=== PATIENT | male | born 1980 | race Caucasian/White ===

== ENCOUNTER 2021-11-10 13:16 | Inpatient (IN) ==
[2021-11-10] MEDS ORDERED: AMPICILLIN/SULBACTAM SOD 3,000 MG in 0.9 % SODIUM CHLORIDE 100 ML IV STA (13:40)
--- NOTE | 2021-11-10 13:58 | Emergency Department Note ---
Impression & Plan Diverticulitis of sigmoid colon, Abdominal pain, RLQ ED Provider Note Provider: Rachid Gifford MD DATE OF SERVICE: 11/10/2021 CHIEF COMPLAINT: Abdominal pain, diverticulitis HISTORY OF PRESENT ILLNESS: Patient is a 41-year-old gentleman history of GERD presenting here today reporting developed yesterday afternoon around 3 PM some pain in the right lower quadrant of the abdomen. Sharp pain wax and wane a bit over the course the evening was associated with some dry heaves. Took some ibup rofen which helped last night. Has not had anything for pain today with 3 out of 10 pain currently in the right lower quadrant. Discussed and c-Myc is doctor's clinic earlier today and an outpatient CT scan. Advised to come to the ER given CT scan findings showing diverticulitis with microperforation but no abscess. Patient denies significant fevers or chills. He denies significant nausea at this time. No history of diverticulitis or colonoscopy reported by the patient. REVIEW OF SYSTEMS: A total of 10 review of systems was obtained and negative except as stated above in the HPI. PAST MEDICAL HISTORY: As noted above MEDICATIONS: PPI SOCIAL HISTORY: Rare alcohol, non-smoker PHYSICAL EXAM: GENERAL: alert and oriented in no acute distress on stretcher Head: normocephalic and atraumatic EYES: No injection, discharge or icterus. NECK: Trachea midline. LUNGS: Airway patent. No retractions not tachypneic HEART: Regular rate and rhythm. No chest wall tenderness ABDOMEN: Soft and non-tender with some right lower abdominal tenderness on exam. Not peritoneal. SKIN: Acyanotic, warm, dry, without rashes EXTREMITIES: Without swelling, tenderness or deformity NEUROLOGICAL: No focal deficits. No aphasia. No facial droop or slurred speech. Ambulatory. Patient's laboratory studies and imaging reviewed. Differential includes Appendicitis, testicular torsion, infections, diverti culitis, UTI, obstruction, mesenteric ischemia, aortic pathology, inflammatory bowel disease, renal colic, PUD, pancreatitis, biliary pathology, hernia, volvulus, constipation, as well as other pathologies. IMPRESSION/MEDICAL DECISION MAKING: Patient presents with abdominal pain yesterday presents today. Outpatient CT scan with diverticulitis with microperforation. No drainable abscess noted per the scan reports available from the [employer] system. Patient is well-appearing and afebrile. Does not appear septic. Without a history of diverticulitis but no history of colonoscopy either. Given a dose of Unasyn. Basic blood work was obtained. Patient with mild leukocytosis consistent with diverticulitis. Given the microperforation finding would proceed with some IV antibiotics and observe overnight. Discussed with the patient. Hospitalist team was consulted. DIAGNOSIS: Diverticulitis with microperforation, right lower quadrant abdominal pain DISPOSITION: Hospitalist will evaluate Patient was agreeable with this plan. Past Med/Surg History Medical History GERD (gastroesophageal reflux disease) HLD (hyperlipidemia) Surgical History S/P tonsillectomy Family History Other Heart disease Social History (Updated 11/10/21 @ 15:26 by Miriam Soto PA-C) Smoking Status: Never smoker Hx Alcohol Use: Yes Alcohol type: beer Alcohol Intake Frequency: 2-4 x/Month Feels Safe at Home: Yes Allergies Allergies Allergy/AdvReac Type Severity Reaction Status Date / Time No Known Allergies Unverified 11/10/21 14:51 Home Meds Home Medications Medication Instructions Recorded Confirmed esomeprazole magnesium 20 mg 20 mg PO QAM 11/10/21 11/10/21 capsule,delayed release (Nexium) Results & Data (ED) Vital Signs Vital Signs - 24 hr 11/10/21 13:18 11/10/21 15:16 Temperature 36.9 C Temperature Source Temporal Artery Scan Pulse Rate 87 Respiratory Rate 20 Blood Pressure 120/86 Blood Pressure Mean 97 Pulse Oximetry 97 Oxygen Delivery Method Room Air Room Air Sepsis Recent Fever Within 48 Hours No Sepsis New/Unexplained Change in Mental Status N/A Sepsis Action Taken by Nursing No Action Required Laboratory Data Result diagrams: 11/10/21 14:25 11/10/21 14:25 Lab Results 11/10/21 11/10/21 11/10/21 Range/Units 14:25 14:25 Unknown WBC 13.23 H (4.8-10.8) K/uL RBC 4.93 (4.7-6.1) M/uL Hgb 15.3 (14.0-18.0) g/dL Hct 45.7 (42-52) % MCV 92.7 (80-100) fL MCH 31.0 (25-34) pg MCHC 33.5 (32-36) g/dL RDW Std Deviation 43.9 (36.4-46.3) fL RDW Coeff of Micah 13.0 (11.5-14.5) % Plt Count 245 (130-400) K/uL MPV 10.7 H (7.4-10.4) fL Immature Gran % (Auto) 0.4 % Neut % (Auto) 66.3 % Lymph % (Auto) 18.8 % [place] % (Auto) 12.5 % Eos % (Auto) 1.8 % Baso % (Auto) 0.2 % Neut # (Auto) 8.77 H (1.4-6.5) K/uL Lymph # (Auto) 2.49 (1.2-3.4) K/uL [place] # (Auto) 1.66 H (0.11-0.59) K/uL Eos # (Auto) 0.24 (0-0.5) K/uL Baso # (Auto) 0.02 (0-0.2) K/uL Immature Gran # (Auto) 0.05 H (0.00-0.02) K/uL Sodium 137 (136-145) mmol/L Potassium 4.3 (3.5-5.1) mmol/L Chloride 102 (98-107) mmol/L Carbon Dioxide 28 (21-32) mmol/L Anion Gap 7 (3-11) BUN 13 (6-23) mg/dl Creatinine 1.08 (0.6-1.4) mg/dl Est Cr Clr Drug Dosing 116.2 ml/min Est GFR ( Amer) 97.6 ml/min Est GFR (Non-Af Amer) 84.2 ml/min BUN/Creatinine Ratio 12.0 (10-20) Glucose 90 (70-99(Fasting)) mg/dl Calcium 9.7 (8.5-10.1) mg/dl Total Bilirubin 1.0 (0.2-1.0) mg/dl AST 25 (13-39) U/L ALT 41 (7-52) U/L Alkaline Phosphatase 48 (34-104) U/L Total Protein 7.9 (6.0-8.3) gm/dl Albumin 4.6 (3.4-5.0) gm/dl Globulin 3.3 (2.5-4.0) gm/dl Albumin/Globulin Ratio 1.4 (0.9-2) Lipase 10 L (11-82) U/L SARS-CoV-2, RNA, NAAT NEGATIVE (NEGATIVE) Administered Medications Lactated Ringer's (Lr) 1,000 mls @ 125 mls/hr IV .Q8H ZEE Stop: 12/10/21 14:14 Last Admin: 11/10/21 14:43 Dose: 125 mls/hr Documented by: [id number] Discontinued Medications Ampicillin Sodium/Sulbactam Sodium 3,000 mg/ Sodium Chloride 108 mls @ 200 mls/hr IV NOW STA; Protocol Stop: 11/10/21 14:12 Last Infusion: 11/10/21 15:42 Dose: 0 mls/hr Documented by: [id number] Admin: 11/10/21 14:43 Dose: 200 mls/hr Documented by: [id number] Discharge Plan Visit Data Chief Complaint: Abnormal Labs/Diagnostic Testing Stated Complaint: CT SHOWED DIVERTICULITIS ED Provider: Rachid Gifford Discharge Problem: Diverticulitis of sigmoid colon, Abdominal pain, RLQ Patient Disposition: Being Evaluated by Hospitalist Forms Stand Alone Forms: Altar Prescriptions Prescriptions: No Action esomeprazole magnesium [Nexium] 20 mg Capsule,Delayed Release(Dr/Ec) 20 mg PO QAM RF: 0 Referrals Referrals: PCP,NO [Physician] -
[2021-11-10] MEDS ORDERED: LACTATED RINGER'S 1,000 ML IV SCH (14:15)
--- NOTE | 2021-11-10 14:31 | History & Physical Report ---
Date of Service November 10, 2021 Assessment & Plan (1) Diverticulitis of sigmoid colon: Plan: This is a 41yo M with PMH of dyslipidemia and GERD who presents with abdominal pain and an outpatient CT abd/pelvis showing sigmoid diverticulitis with microperforation but no abscess. VSS, WBC 13.23, hgb 15.[address] abd/pelvis with contrast showing sigmoid diverticulitis with microperforation but no abscess Continue abx therapy with Zosyn Clear liquids Consider stool cx/ c diff if patient develops diarrhea Routine general surgery consult (2) GERD (gastroesophageal reflux disease): Plan: Continue PPI DVT Ppx: SCDs for now Code status: FULL PCP: [place] Dispo: Admitted to med/surg Patient seen in collaboration with Dr. Woodson. Please see addendum. History of Present Illness Chief Complaint: abd pain Primary Care Provider: NO PCP This is a 41yo M with PMH of dyslipidemia and GERD who presents with abdominal pain. Developed lower sided abdominal pain yesterday that got worse as time went on. Describes yesterday's pain as 8/10 and sharp to the point that it made him feel nauseated. Had some relief with ibuprofen at home. Denies any vomiting. No diarrhea or hematochezia. No fever or chills. Decreased appetite since yesterday. Abdominal pain now 2/10 and not requiring pain meds. No CP, SOB, dysuria, diarrhea or constipation. No previous abdominal surgeries. Went to PCP this morning with CT abd/pelvis with contrast showing sigmoid diverticulitis with microperforation but no abscess. Sent to ED for further evaluation. Allergies Allergy/AdvReac Type Severity Reaction Status Date / Time No Known Allergies Unverified 11/10/21 14:51 Home Medications Medication Instructions Recorded Confirmed Type esomeprazole magnesium 20 mg 20 mg PO QAM 11/10/21 11/10/21 History capsule,delayed release (Nexium) Past Med/Surg History Medical History GERD (gastroesophageal reflux disease) HLD (hyperlipidemia) Surgical History S/P tonsillectomy Family History Other Heart disease Social History (Updated 11/10/21 @ 15:26 by Miriam Soto PA-C) Smoking Status: Never smoker Hx Alcohol Use: Yes Alcohol type: beer Alcohol Intake Frequency: 2-4 x/Month Feels Safe at Home: Yes Review of Systems Review of Systems: At least ten systems reviewed and negative except as noted in the HPI. Physical Exam Physical Exam: Gen: WD/WN, NAD, sitting in bed, A&Ox3 HEENT: Normocephalic, atraumatic, conjunctivae moist, sclerae anicteric, mucous membranes moist Lung: Clear to Auscultation bilaterally, no wheezes/rales/rhonchi Heart: Regular rate, regular rhythm, no murmurs, rubs, or gallops Abdomen: RLQ TTP, ND +BS x 4 Extremities: no edema Skin: Warm, no rash Results & Data Results & Data ([facility]) Vital Signs (Past 12 Hours) Vital Signs Temp Pulse Resp BP Pulse Ox 11/10/21 13:18 36.9 C 87 20 120/86 97 Laboratory Results Short CBC 11/10/21 Range/Units 14:25 WBC 13.23 H (4.8-10.8) K/uL Hgb 15.3 (14.0-18.0) g/dL Hct 45.7 (42-52) % Plt Count 245 (130-400) K/uL BMP 11/10/21 14:25 Sodium 137 Potassium 4.3 Chloride 102 Carbon Dioxide 28 BUN 13 Creatinine 1.08 Glucose 90 Calcium 9.7 Liver Function 11/10/21 Range/Units 14:25 Total Bilirubin 1.0 (0.2-1.0) mg/dl AST 25 (13-39) U/L ALT 41 (7-52) U/L Alkaline Phosphatase 48 (34-104) U/L Albumin 4.6 (3.4-5.0) gm/dl Diagnostic Findings Outpatient imaging with CT abd/pelvis IV and oral contrast: Impression: Sigmoid diverticulitis with microperforation but no abscess Supervising Physician Co-Signing Physician Notes Pt is a 41 y/o M with hx of GERD and HLD admitted for diverticulitis. PE: NAD Cardiac: Normal S1/S2, no murmur Lungs: CTA, no wheezing or crackles Abd: ND, Soft, increased BS, TTP of the lower abd (R>L), no rebound tenderness Psych: AAOx3, normal affect A/P: Acute Diverticulitis: -CT abd: Normal in caliber. There is sigmoid diverticulosis with evidence of diverticulitis involving the mid sigmoid. There is associated microperforation, but no abscess is seen. The appendix is within normal limits -will get surgery consult - clear liquid diet and advance as tolerates -will continue the pt on zosyn -prn pain meds Agree with A/P by Miriam Soto PA-C
[2021-11-10 14:44] LABS: Basophils # (auto) 0.02 K/uL (0-0.2); Basophils % (auto) 0.2 %; Eosinophils # (auto) 0.24 K/uL (0-0.5); Eosinophils % (auto) 1.8 %; Hematocrit (blood only) 45.7 % (42-52); Hemoglobin 15.3 g/dL (14.0-18.0); Immature Granulocytes # (auto) 0.05 K/uL (0.00-0.02); Immature Granulocytes % (auto) 0.4 %; Lymphocytes # (auto) 2.49 K/uL (1.2-3.4); Lymphocytes % (auto) 18.8 %; Mean Corpuscular Hgb Conc 33.5 g/dL (32-36); Mean Corpuscular Volume 92.7 fL (80-100); Mean Platelet Volume 10.7 fL (7.4-10.4); Monocytes # (auto) 1.66 K/uL (0.11-0.59); Monocytes % (auto) 12.5 %; Neutrophils # (auto) 8.77 K/uL (1.4-6.5); Neutrophils % (auto) 66.3 %; Platelet Count 245 K/uL (130-400); RDW Standard Deviation 43.9 fL (36.4-46.3); Red Blood Count 4.93 M/uL (4.7-6.1); White Blood Count 13.23 K/uL (4.8-10.8)
[2021-11-10 15:12] LABS: Albumin Globulin Ratio 1.4 (0.9-2); Albumin Level 4.6 gm/dl (3.4-5.0); Calcium 9.7 mg/dl (8.5-10.1); Creatinine Clr Calc Pharmacy 116.2 ml/min; Est GFR (African American) 97.6 ml/min; Est GFR (Non-African American) 84.2 ml/min; Globulin 3.3 gm/dl (2.5-4.0); Potassium 4.3 mmol/L (3.5-5.1); Total Protein 7.9 gm/dl (6.0-8.3)
[2021-11-10] MEDS ORDERED: CONSULT PHARMACY STA (15:15)
--- NOTE | 2021-11-10 16:57 | Surgery Consultation ---
Date of Consultation November 10, 2021 Assessment & Plan (1) Diverticulitis of sigmoid colon: (2) Abdominal pain, RLQ: 41-year-old male who presented to the emergency room with complaint of right lower quadrant abdominal pain that started at 3 PM yesterday associated chills with nausea and dry heaves no vomiting. Outpatient CT scan of abdomen and pelvis with oral and IV contrast showing acute sigmoid diverticulitis with microperforation however no abscess formation. His pain is currently a 3 out of 10. Mild leukocytosis of 13,000. Afebrile. Plan: No acute surgical intervention required at this time. Would continue conservative measures with IV fluids, IV antibiotics, pain management as needed and okay to have clear liquids. Can possibly advance diet tomorrow. Discussed outpatient need for colonoscopy in 6 to 8 weeks once acute inflammation has resolved. We will continue to follow. Dr. Dumont has seen and examined patient and agrees with above. History of Present Illness Reason for Consultation: Acute sigmoid diverticulitis with microperforation Requesting Physician: Miriam Soto PA-C Attending Physician: Denise Woodson History of Present Illness Andre is a pleasant 41-year-old male with past medical history of reflux, h yperlipidemia who presented to the emergency room from his PCP office due to abdominal pain that started yesterday around [address] scan showing sigmoid diverticulitis with microperforation. Andre states that the pain started around 3 PM and then increased in severity throughout the evening. Was about 9 out of 10 at the highest. Pain located in the right lower abdomen with associated chills, nausea, dry heaves but no vomiting. Never had any similar episodes of pain like this in the past. Never had any episodes of diverticulitis in the past. Has never had a colonoscopy. States he took 1 ibuprofen which helped the pain a little bit. States his pain is about a 3 out of 10 today and is feeling better. Bowel movements have been regular. No blood in the stools. Otherwise no complaints. His outpatient CT scan was able to be reviewed within [facility] records. Showing acute sigmoid diverticulitis with microperforation however no evidence of an abscess or fluid collection. His sigmoid is actually located within the right lower quadrant which makes sense of his right lower quadrant abdominal pain. Allergies Allergy/AdvReac Type Severity Reaction Status Date / Time No Known Allergies Unverified 11/10/21 14:51 Home Medications Medication Instructions Recorded Confirmed Type esomeprazole magnesium 20 mg 20 mg PO QAM 11/10/21 11/10/21 History capsule,delayed release (Nexium) Patient History Medical History GERD (gastroesophageal reflux disease) HLD (hyperlipidemia) Surgical History S/P tonsillectomy Family History Other Heart disease Social History (Updated 11/10/21 @ 15:26 by Miriam Soto PA-C) Smoking Status: Never smoker Hx Alcohol Use: Yes Alcohol type: beer Alcohol Intake Frequency: 2-4 x/Month Feels Safe at Home: Yes Physical Exam Constitutional: well developed, well nourished and + obese; no acute distress and not ill appearing Neck: normal visual inspection and trachea midline Respiratory: normal respiratory effort, lungs clear to auscultation Cardiovascular: RRR, no murmur, no edema Gastrointestinal (Abdomen): Inspection/Auscultation: abdomen normal to inspection Percussion/Palpation: + abdomen tender (Right lower quadrant), + guarding (Voluntary, right lower quadrant), abdomen soft and + hernia (Umbilical hernia, reducible); abdomen not rigid Skin: no rashes, warm and dry Psychiatric: A+Ox3, euthymic affect Results & Data ([facility]) Vital Signs (Past 12 Hours) Vital Signs Temp Pulse Resp BP Pulse Ox 11/10/21 13:18 36.9 C 87 20 120/86 97 Laboratory Results 11/10/21 11/10/21 11/10/21 Range/Units Unknown 14:25 14:25 WBC 13.23 H (4.8-10.8) K/uL RBC 4.93 (4.7-6.1) M/uL Hgb 15.3 (14.0-18.0) g/dL Hct 45.7 (42-52) % MCV 92.7 (80-100) fL MCH 31.0 (25-34) pg MCHC 33.5 (32-36) g/dL RDW Std Deviation 43.9 (36.4-46.3) fL RDW Coeff of Micah 13.0 (11.5-14.5) % Plt Count 245 (130-400) K/uL MPV 10.7 H (7.4-10.4) fL Immature Gran % (Auto) 0.4 % Neut % (Auto) 66.3 % Lymph % (Auto) 18.8 % [place] % (Auto) 12.5 % Eos % (Auto) 1.8 % Baso % (Auto) 0.2 % Neut # (Auto) 8.77 H (1.4-6.5) K/uL Lymph # (Auto) 2.49 (1.2-3.4) K/uL [place] # (Auto) 1.66 H (0.11-0.59) K/uL Eos # (Auto) 0.24 (0-0.5) K/uL Baso # (Auto) 0.02 (0-0.2) K/uL Immature Gran # (Auto) 0.05 H (0.00-0.02) K/uL Sodium 137 (136-145) mmol/L Potassium 4.3 (3.5-5.1) mmol/L Chloride 102 (98-107) mmol/L Carbon Dioxide 28 (21-32) mmol/L Anion Gap 7 (3-11) BUN 13 (6-23) mg/dl Creatinine 1.08 (0.6-1.4) mg/dl Est Cr Clr Drug Dosing 116.2 ml/min Est GFR ( Amer) 97.6 ml/min Est GFR (Non-Af Amer) 84.2 ml/min BUN/Creatinine Ratio 12.0 (10-20) Glucose 90 (70-99(Fasting)) mg/dl Calcium 9.7 (8.5-10.1) mg/dl Total Bilirubin 1.0 (0.2-1.0) mg/dl AST 25 (13-39) U/L ALT 41 (7-52) U/L Alkaline Phosphatase 48 (34-104) U/L Total Protein 7.9 (6.0-8.3) gm/dl Albumin 4.6 (3.4-5.0) gm/dl Globulin 3.3 (2.5-4.0) gm/dl Albumin/Globulin Ratio 1.4 (0.9-2) Lipase 10 L (11-82) U/L SARS-CoV-2, RNA, NAAT NEGATIVE (NEGATIVE) Diagnostic Findings Reviewed outpatient CT scan of abdomen pelvis with oral and IV contrast [facility] record showing acute sigmoid diverticulitis with microperforation no evidence of abscess or fluid collection.
[2021-11-10] MEDS ORDERED: PIPERACILL/TAZOBAC CONSULT ACTIVE PRN (17:18)
[2021-11-10] MEDS ORDERED: PIPERACILLIN/TAZOBACTAM 3.375 GM in DEXTROSE 5% 100 ML IV ONE (17:30)
[2021-11-10] MEDS ORDERED: ONDANSETRON INJ 2 MG/ML 2 ML VIAL IV PRN (18:38)
[2021-11-10] MEDS ORDERED: ACETAMINOPHEN 325 MG TAB PO PRN (18:38)
[2021-11-10] MEDS ORDERED: POLYETHYLENE (MIRALAX) 17 GM PACK PO PRN (18:38)
[2021-11-11] MEDS: PIPERACILLIN/TAZOBACTAM 3.375 GM in DEXTROSE 5% 100 ML IV SCH ×3 (01:42→13:43)
[2021-11-11 08:02] LABS: Hematocrit (blood only) 44.1 % (42-52); Hemoglobin 14.4 g/dL (14.0-18.0); Mean Corpuscular Hemoglobin 30.8 pg (25-34); Mean Corpuscular Hgb Conc 32.7 g/dL (32-36); Mean Corpuscular Volume 94.2 fL (80-100); Mean Platelet Volume 10.7 fL (7.4-10.4); Platelet Count 247 K/uL (130-400); RDW Standard Deviation 44.6 fL (36.4-46.3); Red Blood Count 4.68 M/uL (4.7-6.1); White Blood Count 9.05 K/uL (4.8-10.8)
[2021-11-11 10:29] LABS: BUN Creatinine Ratio 8.9 (10-20); Calcium 9.4 mg/dl (8.5-10.1); Creatinine Clr Calc Pharmacy 112.1 ml/min; Est GFR (African American) 93.4 ml/min; Est GFR (Non-African American) 80.6 ml/min
--- NOTE | 2021-11-11 12:00 | Surgery Progress Note ---
Date of Service November 11, 2021 Assessment & Plan (1) Diverticulitis of sigmoid colon: (2) Abdominal pain, RLQ: Plan: 41-year-old male who presented to the emergency room with complaint of right lower quadrant abdominal pain that started at 3 PM 1/24 associated chills with nausea and dry heaves no vomiting. Outpatient CT scan of abdomen and pelvis with oral and IV contrast showing acute sigmoid diverticulitis with microperforation however no abscess formation. afebrile, vss, leukocytosis resolved. Plan: No acute surgical intervention required at this time. Okay to advance diet and discharge later today after another dose of IV antibiotics and transition to oral antibiotics for 10 days will need outpatient colonoscopy in 6-8 weeks low fiber diet for next few weeks Dr. Dumont has seen and examined patient and agrees with above. Admission and Anticipated Discharge Date Admission Date: November 10, 2021 Subjective feeling well today no nausea or vomiting minimal abdominal pain tolerated clear liquids Physical Exam Constitutional: WD/WN, vitals as above no acute distress and not ill appearing Respiratory: normal respiratory effort; no respiratory distress Gastrointestinal (Abdomen): Inspection/Auscultation: abdomen normal to inspection; abdomen not distended Percussion/Palpation: + abdomen tender (minimal in RLQ, improved compared to yesterday), abdomen soft and + hernia (reducible umbilical hernia); no guarding and abdomen not rigid Skin: no rashes, warm and dry Psychiatric: A+Ox3, euthymic affect Results & Data ([facility]) Vital Signs (Past 12 Hours) Vital Signs Temp Pulse Resp BP Pulse Ox 11/11/21 07:13 36.8 C 86 18 107/70 96 Laboratory Results 11/11/21 11/11/21 11/10/21 Range/Units 07:21 07:21 Unknown WBC 9.05 (4.8-10.8) K/uL RBC 4.68 L (4.7-6.1) M/uL Hgb 14.4 (14.0-18.0) g/dL Hct 44.1 (42-52) % MCV 94.2 (80-100) fL MCH 30.8 (25-34) pg MCHC 32.7 (32-36) g/dL RDW Std Deviation 44.6 (36.4-46.3) fL RDW Coeff of Micah 13.0 (11.5-14.5) % Plt Count 247 (130-400) K/uL MPV 10.7 H (7.4-10.4) fL Immature Gran % (Auto) % Neut % (Auto) % Lymph % (Auto) % [place] % (Auto) % Eos % (Auto) % Baso % (Auto) % Neut # (Auto) (1.4-6.5) K/uL Lymph # (Auto) (1.2-3.4) K/uL [place] # (Auto) (0.11-0.59) K/uL Eos # (Auto) (0-0.5) K/uL Baso # (Auto) (0-0.2) K/uL Immature Gran # (Auto) (0.00-0.02) K/uL Sodium 140 (136-145) mmol/L Potassium 4.0 (3.5-5.1) mmol/L Chloride 105 (98-107) mmol/L Carbon Dioxide 27 (21-32) mmol/L Anion Gap 8 (3-11) BUN 10 (6-23) mg/dl Creatinine 1.12 (0.6-1.4) mg/dl Est Cr Clr Drug Dosing 112.1 ml/min Est GFR ( Amer) 93.4 ml/min Est GFR (Non-Af Amer) 80.6 ml/min BUN/Creatinine Ratio 8.9 L (10-20) Glucose 119 H (70-99(Fasting)) mg/dl Calcium 9.4 (8.5-10.1) mg/dl Total Bilirubin (0.2-1.0) mg/dl AST (13-39) U/L ALT (7-52) U/L Alkaline Phosphatase (34-104) U/L Total Protein (6.0-8.3) gm/dl Albumin (3.4-5.0) gm/dl Globulin (2.5-4.0) gm/dl Albumin/Globulin Ratio (0.9-2) Lipase (11-82) U/L SARS-CoV-2, RNA, NAAT NEGATIVE (NEGATIVE) 11/10/21 11/10/21 Range/Units 14:25 14:25 WBC 13.23 H (4.8-10.8) K/uL RBC 4.93 (4.7-6.1) M/uL Hgb 15.3 (14.0-18.0) g/dL Hct 45.7 (42-52) % MCV 92.7 (80-100) fL MCH 31.0 (25-34) pg MCHC 33.5 (32-36) g/dL RDW Std Deviation 43.9 (36.4-46.3) fL RDW Coeff of Micah 13.0 (11.5-14.5) % Plt Count 245 (130-400) K/uL MPV 10.7 H (7.4-10.4) fL Immature Gran % (Auto) 0.4 % Neut % (Auto) 66.3 % Lymph % (Auto) 18.8 % [place] % (Auto) 12.5 % Eos % (Auto) 1.8 % Baso % (Auto) 0.2 % Neut # (Auto) 8.77 H (1.4-6.5) K/uL Lymph # (Auto) 2.49 (1.2-3.4) K/uL [place] # (Auto) 1.66 H (0.11-0.59) K/uL Eos # (Auto) 0.24 (0-0.5) K/uL Baso # (Auto) 0.02 (0-0.2) K/uL Immature Gran # (Auto) 0.05 H (0.00-0.02) K/uL Sodium 137 (136-145) mmol/L Potassium 4.3 (3.5-5.1) mmol/L Chloride 102 (98-107) mmol/L Carbon Dioxide 28 (21-32) mmol/L Anion Gap 7 (3-11) BUN 13 (6-23) mg/dl Creatinine 1.08 (0.6-1.4) mg/dl Est Cr Clr Drug Dosing 116.2 ml/min Est GFR ( Amer) 97.6 ml/min Est GFR (Non-Af Amer) 84.2 ml/min BUN/Creatinine Ratio 12.0 (10-20) Glucose 90 (70-99(Fasting)) mg/dl Calcium 9.7 (8.5-10.1) mg/dl Total Bilirubin 1.0 (0.2-1.0) mg/dl AST 25 (13-39) U/L ALT 41 (7-52) U/L Alkaline Phosphatase 48 (34-104) U/L Total Protein 7.9 (6.0-8.3) gm/dl Albumin 4.6 (3.4-5.0) gm/dl Globulin 3.3 (2.5-4.0) gm/dl Albumin/Globulin Ratio 1.4 (0.9-2) Lipase 10 L (11-82) U/L SARS-CoV-2, RNA, NAAT (NEGATIVE)
--- NOTE | 2021-11-11 12:09 | Discharge Summary ---
Date of Service November 11, 2021 Admission HPI Per Admitting Provider This is a 41yo M with PMH of dyslipidemia and GERD who presents with abdominal pain. Developed lower sided abdominal pain yesterday that got worse as time went on. Describes yesterday's pain as 8/10 and sharp to the point that it made him feel nauseated. Had some relief with ibuprofen at home. Denies any vomiting. No diarrhea or hematochezia. No fever or chills. Decreased appetite since yesterday. Abdominal pain now 2/10 and not requiring pain meds. No CP, SOB, dysuria, diarrhea or constipation. No previous abdominal surgeries. Went to PCP this morning with CT abd/pelvis with contrast showing sigmoid diverticulitis with microperforation but no abscess. Sent to ED for further evaluation. Admission Exam Per Admitting Provider Gen: WD/WN, NAD, sitting in bed, A&Ox3 HEENT: Normocephalic, atraumatic, conjunctivae moist, sclerae anicteric, mucous membranes moist Lung: Clear to Auscultation bilaterally, no wheezes/rales/rhonchi Heart: Regular rate, regular rhythm, no murmurs, rubs, or gallops Abdomen: RLQ TTP, ND +BS x 4 Extremities: no edema Skin: Warm, no rash Principal Diagnosis Acute sigmoid diverticulitis with microperforation Discharge Exam Gen: WD/WN, NAD, A&O x3 HEENT: Normocephalic, atraumatic, conjunctivae moist, sclerae anicteric, mucous membranes moist. Lung: Clear to Auscultation bilaterally, no wheezes/rales/rhonchi Heart: Regular rate, regular rhythm, no murmurs, rubs, or gallops Abdomen: Soft, NT, ND +BS x 4 Extremities: No edema Skin: Warm, no rash, negative turgor. Discharge Data Allergies Allergy/AdvReac Type Severity Reaction Status Date / Time No Known Allergies Unverified 11/10/21 14:51 Consultations General Surgery: 1) Diverticulitis of sigmoid colon: (2) Abdominal pain, RLQ: Plan: 41-year-old male who presented to the emergency room with complaint of right lower quadrant abdominal pain that started at 3 PM 1/24 associated chills with nausea and dry heaves no vomiting. Outpatient CT scan of abdomen and pelvis with oral and IV contrast showing acute sigmoid diverticulitis with microperforation however no abscess formation. afebrile, vss, leukocytosis resolved. Plan: No acute surgical intervention required at this time. Okay to advance diet and discharge later today after another dose of IV antibiotics and transition to oral antibiotics for 10 days will need outpatient colonoscopy in 6-8 weeks low fiber diet for next few weeks Dr. Dumont has seen and examined patient and agrees with above. Ordered Studies OUTPT CT a/p: EXAMEXAM: CT ABD/PELVIS W IV AND W ORAL CONTRASTDATE TIME: 11/10/2021 - 12:45 pmTECHNIQUEOral Contrast: Oral contrast was administered.IV Contrast: IV contrast was used.HISTORYRLQ painCOMPARISONNoneFINDINGSLOWER CHEST: The lung bases are clear. There is a small hiatal hernia.LINES AND DEVICES: None.LIVER: There is probable steatosis. No focal lesions are seen.BILE DUCTS: Normal in caliber.GALLBLADDER: No calcified stones.PANCREAS: Within normal limits.SPLEEN: Within normal limits.ADRENALS: Within normal limits.KIDNEYS/URETERS: Within normal limits.BLADDER: Within normal limits.BOWEL: Normal in caliber. There is sigmoid diverticulosis with evidence of diverticulitis involving the mid sigmoid. There is associated microperforation, but no abscess is seen. The appendix is within normal limits.LYMPH NODES: Within normal limits.VESSELS: Within normal limits.REPRODUCTIVE ORGANS: Within normal limits.PERITONEUM/RETROPERITONEUM: Microperforation is seen associated with the sigmoid diverticulitis. No ascites or fluid collection.ABDOMINAL WALL/SOFT TISSUES: There is a small fat containing umbilical hernia.BONES: Within normal limits.IMPRESSIONIMPRESSIONSigmoid diverticulitis with microperforation but no abscess. Hospital Course (1) Diverticulitis of sigmoid colon: This is a 41yo M with PMH of dyslipidemia and GERD who presents with abdominal pain and an outpatient CT abd/pelvis showing sigmoid diverticulitis with microperforation but no abscess. His vital signs remained stable initial white blood cell count was 13.23. He was started on IV Zosyn. He was seen and evaluated by general surgery who recommended clear liquid diet and IV antibiotics. He tolerated clear liquid diet and his symptoms resolved. He was reevaluated by general surgery and felt safe to discharge home with oral antibiotics if tolerates low fiber diet. Is recommended patient follow low fiber diet for 2 to 3 weeks as outpatient and undergo colonoscopy in 6 to 8 weeks. On day of discharge patient was in good spirits and without abdominal pain. His leukocytosis resolved. He was tolerating a low residue diet prior to discharge. He received 2 doses of IV Zosyn on day of discharge. He offers no acute concerns all his questions were answered. (2) GERD (gastroesophageal reflux disease): Total Time Total Time Spent Total Time Spent (In Minutes): 35 minutes Total Time Includes: Examination of the Patient, Discharge Planning, Medication Reconciliation, Communication With Other Providers and Other Discharge Plan Discharge Items Patient Disposition: Home - Self-Care Reason For Visit: ACUTE SIGMOID DIVERTICULITIS Discharge Diagnosis: Acute Sigmoid Diverticulitis with microperforation Condition on Discharge: Good Activity: Resume your previous activity Activity Comment: Resume activity gradually as tolerated Lifting: Wait until after follow-up appointment Bathing: No limitations Sexual Activity: When tolerated Exercise/Sports: Wait until after follow-up appointment Driving/Machine Use: Resume 1 day after discharge Weightbearing: Full weightbearing Non-emergency contact: Primary Care Provider and Surgeon Call non-emergency contact if: you have any medication questions, your symptoms worsen, your pain is not controlled, your pain is worsening, your pain is unusual for you, your pain is concerning for you, you have a fever and your temperature is above 101 Follow-up/Referrals: Fernando Sanders MD [Primary Care Provider] - (Date & Time 11/16/2021 8:00 AM Provider Fernando Sanders MD Department [facility] ) Diet: Low Fiber Addtl Attending Provider Instructions: MEDICATION CHANGES: Two antibiotics have been prescribed to treat your Diverticulitis. *Ciprofloxacin 500mg every 12 hours for 10 days. *Metronidazole 500mg every 8 hours for 10 days - do not consume alcohol while taking this medication. Resume all other home medications SUMMARY OF TEST RESULTS: You were admitted to hospital due to acute diverticulitis. This was diagnosed on CT of your abdomen. It also showed you had a microperforation of your colon. You were seen and evaluated by the general surgery team who felt conservative measures were indicated. This included downgrading diet to clear liquid diet, treating with IV antibiotics and pain medication. Your symptoms improved and your diet was upgraded. You were discharged with oral antibiotics. PENDING TEST RESULTS: None RECOMMENDATIONS FOR FOLLOW-UP: Please follow-up with PCP as scheduled, 11/16/2021 8:00 AM. Recommend following a low fiber diet for the next 2 to 3 weeks. A handout has been provided to you that explains foods to eat while on low fiber diet. Recommend staying well-hydrated drinking at least 64 ounces of water daily. You will need a colonoscopy in 6 to 8 weeks. Your primary care doctor can schedule this for you. Please complete antibiotics in its entirety. You may take [id number] Tylenol as directed for pain. While on antibiotics do not consume alcohol. OTHER INSTRUCTIONS: Seek medical attention if you have: * temperature above 101 * chest pain or trouble breathing * abdominal pain, nausea, vomiting * diarrhea, dark stools or bloody stools * any unanswered questions or concerns Call 911 if symptoms are severe. Please take good care of yourself. It has been a pleasure taking care of you. Please take care of yourself. If you have any questions regarding your recent hospitalization please contact [facility] and request Carlitos Clayist @ [phone]. Halle Waldrop PA-C Pending Studies at Discharge: No Stand-Alone Forms: My [facility], Work/School Release, Smoking Cessation Medications and DC Order Prescriptions: New ciprofloxacin HCl [Cipro] 500 mg tablet 500 mg PO Q12H Qty: 20 RF: 0 metronidazole 500 mg tablet 500 mg PO Q8H 10 Days Qty: 30 RF: 0 Continued esomeprazole magnesium [Nexium] 20 mg Capsule,Delayed Release(Dr/Ec) 20 mg PO QAM RF: 0 Discharge Orders: Discharge Order (Routine); Ordered 11/11/21 Ordered By: Halle Parker/Other Patient Handouts: Flagyl Oral Tablet 500 mg, Cipro Oral Tablet 500 mg, Low-Fiber Diet, Diverticulitis Dc Admission Data Admit Date/Time: 11/10/21 15:15 Attending Provider: Anibal Bean Admit Provider: Denise Woodson Primary Care Provider: Fernando Sanders Other Providers: Aiden Dumont ; Denise Woodson
[2021-11-11 14:54] VITALS: BP 104/67; PULSE 79; TEMP 98.8; O2SAT 95
== END 2021-11-11 18:20 | disposition home or self-care (01) | DRG 392 ==
LOC: ED 13:16 → 3N 15:15 → SUATTDRO 15:15 → 3N 18:07